=== PATIENT | male | born 1950 | race Caucasian/White ===

== ENCOUNTER → 2021-03-02 | Day surgery (SDC) | payer MEDICARE ==
[~2021-03-02] VITALS: Ht 180.3 cm; Wt 102.0 kg
[~2021-03-02] MED LIST: ALDACTONE25 MG PO; AMLODIPINE-ATO1 EAC7 PO; CYCLOBENZAPRINE5 MG PO; DOXAZOSIN MESYLA2 MG PO; FINASTERIDE5 MG PO; LIPITOR20 MG PO; LISINOPRIL40 MG PO; METFORMIN HCL500 MG PO; POTASSIUM20 MEQ/11 PO; STELARA45 MG/0.5 IJ; TRAZODONE HCL300 MG PO; TRIAMTERENE-HC1 EACH PO; VIBRAMYCIN100 MG PO
[2021-03-02 08:24] LABS: HCT 45.2 % (42.0-52.0); HGB 15.9 g/dl (13.2-18.0); MCH 32.1 pg (25.0-31.0); MCHC 35.2 g/dL (32.0-36.0); MCV 91.1 fL (78.0-100.0); MPV 9.5 fL (6.0-9.5); RBC 4.96 M/uL (4.70-6.00); RDW 13.6 % (11.5-14.0); WBC 12.5 K/uL (4.0-10.5)
[2021-03-02 08:25] LABS: ALBUMIN 3.8 g/dL (3.4-5.0); BILIRUBIN - TOTAL 0.4 mg/dL (0.2-1.0); BUN/CREAT RATIO (CALC) 16.7 RATIO; CREATININE 1.14 mg/dL (0.67-1.17); GLOBULIN (CALCULATION) 4.1 g/dL; POTASSIUM 3.9 mmol/L (3.5-5.1); TOTAL PROTEIN 7.9 g/dL (6.4-8.2)
== END | disposition home or self-care (01) ==
LOC: FAS 07:28
PROVIDERS: Surgery
DX: D12.4 Benign neoplasm of descending colon (principal); K57.30 Diverticulosis of large intestine without perforation or abscess without bleeding; E11.9 Type 2 diabetes mellitus without complications; I10 Essential (primary) hypertension; E78.00 Pure hypercholesterolemia, unspecified; F17.210 Nicotine dependence, cigarettes, uncomplicated; Z86.010 Personal history of colon polyps; Z79.84 Long term (current) use of oral hypoglycemic drugs; Z79.899 Other long term (current) drug therapy
CPT/HCPCS: 36415; 80053; 88305; J2250; J2704; J7120